=== PATIENT | male | born 1985 | race Hispanic/Latino ===

== ENCOUNTER 2021-01-09 20:47 | Inpatient (IN) | payer SELFPAY ==
[2021-01-09] MEDS ORDERED: Dexamethasone 10 MG/ML VIAL ONE (21:20)
[2021-01-09] MEDS ORDERED: Acetaminophen 500 MG TAB ONE (21:36)
[2021-01-09] MEDS ORDERED: Ketorolac Tromethamine 30 MG/ML VIAL ONE (21:36)
[2021-01-09 21:47] LABS: Hemoglobin 16.5 g/dL (13.5-17.5); Mean Corpuscular HGB CONC 33.7 g/dL (32.0-36.0); Mean Corpuscular Volume 82.9 fl (81.2-95.1); Mean Platelet Volume 10.2 fl (7.4-10.4); Platelet Count 316 10x3/uL (150-450); RBC Distribution Width 13.2 % (11.5-14.5); White Blood Cell (WBC) Count 7.4 10x3/uL (3.5-10.5)
[2021-01-09 22:09] LABS: ALT (SGPT) 114 U/L (8-55); AST (SGOT) 105 U/L (5-34); Albumin 3.6 g/dL (3.5-5.0); Alkaline Phosphatase 95 U/L (40-110); Anion Gap 19 mmol/L (10-20); BUN (Urea Nitrogen) 18 mg/dL (8.9-20.6); Bilirubin, Total 1.2 mg/dL (0.2-1.2); Calc. Creatinine Clearance 0 mL/min (70-130); Calcium 8.6 mg/dL (7.8-10.44); Carbon Dioxide 24 mmol/L (22-29); Chloride 94 mmol/L (98-107); Globulin 3.6 g/dL (2.4-3.5); Glucose 131 mg/dL (70-105); Protein, Total 7.2 g/dL (6.0-8.3); Sodium 133 mmol/L (136-145)
[2021-01-09 22:35] LABS: CKMB 1.9 ng/mL (0-6.6)
[2021-01-09] MEDS ORDERED: Calcium Carbonate 500 MG ChewTAB PO PRN (22:45)
[2021-01-09] MEDS ORDERED: Ondansetron PF 4 MG/2 ML Vial IVP PRN (22:45)
[2021-01-09] MEDS ORDERED: HYDROcodone/Acetaminophen 5/325 mg Tablet PO PRN (22:45)
[2021-01-09] MEDS ORDERED: Enoxaparin Sodium 40 MG/0.4 ML SYRINGE SC SCH (22:45)
[2021-01-09] MEDS ORDERED: Zolpidem Tartrate 5 MG TAB PO PRN (22:45)
[2021-01-09] MEDS ORDERED: Ventolin HFA Inhaler 60 PUFF INHALER INH PRN (22:49)
[2021-01-09] MEDS ORDERED: Sodium Chloride 0.9% 1,000 ML IV SCH (23:00)
[2021-01-09 23:25] LABS: Band 6 % (5-11); Lymphocytes 7 % (21-51); Reactive Lymphocytes 13 % (0-10)
[2021-01-09 23:26] LABS: Monocytes 6 % (0-10)
[2021-01-09 23:27] LABS: Neutrophil 68 % (42-75)
[2021-01-09 23:28] LABS: Large Platelets SLIGHT; Platelet Morphology Comment Appears Adequate
[2021-01-09 23:29] LABS: MDiff Complete? YES; Manual Diff?? YES
[2021-01-09 23:30] LABS: RBC Morphology Normal
[2021-01-10] MEDS ORDERED: guaiFENesin/Codeine Phosphate 100 mg/10 mg 5 ml UD Cup ONE ×3 (01:07→12:49)
[2021-01-10] MEDS ORDERED: Enoxaparin Sodium 40 MG/0.4 ML SYRINGE ONE ×2 (01:08→08:11)
[2021-01-10 03:52] LABS: Hemoglobin 15.8 g/dL (13.5-17.5); Mean Corpuscular HGB CONC 33.3 g/dL (32.0-36.0); Mean Corpuscular Hemoglobin 27.9 pg (27.0-33.0); Mean Corpuscular Volume 83.7 fl (81.2-95.1); Mean Platelet Volume 9.9 fl (7.4-10.4); Platelet Count 295 10x3/uL (150-450); RBC Distribution Width 13.3 % (11.5-14.5); Red Blood Cell (RBC) Count 5.66 10x6/uL (4.32-5.72); White Blood Cell (WBC) Count 5.7 10x3/uL (3.5-10.5)
[2021-01-10 04:24] LABS: ALT (SGPT) 102 U/L (8-55); AST (SGOT) 83 U/L (5-34); Albumin 3.4 g/dL (3.5-5.0); Alkaline Phosphatase 86 U/L (40-110); Anion Gap 16 mmol/L (10-20); BUN (Urea Nitrogen) 19 mg/dL (8.9-20.6); Bilirubin, Total 1.2 mg/dL (0.2-1.2); CRP (Inflammatory) 7.21 mg/dL (= or < 0.5); Calc. Creatinine Clearance 0 mL/min (70-130); Calcium 8.9 mg/dL (7.8-10.44); Carbon Dioxide 26 mmol/L (22-29); Chloride 97 mmol/L (98-107); Globulin 3.7 g/dL (2.4-3.5); Glucose 142 mg/dL (70-105); Potassium 3.6 mmol/L (3.5-5.1); Protein, Total 7.1 g/dL (6.0-8.3); Sodium 135 mmol/L (136-145)
[2021-01-10 04:29] LABS: D-Dimer Test 4.94 mg/L FEU (0.19-0.50); INR-International Normal Ratio 1.1; PTT 26.8 sec (22.0-33.0)
[2021-01-10 04:45] LABS: CKMB 1.4 ng/mL (0-6.6)
[2021-01-10 05:33] LABS: Band 7 % (5-11); Eosinophils 1 % (0-10); Lymphocytes 4 % (21-51); Monocytes 6 % (0-10); Neutrophil 75 % (42-75); Reactive Lymphocytes 7 % (0-10)
[2021-01-10 05:34] LABS: Platelet Clumps SLIGHT; Platelet Morphology Comment Appears Adequate; Platelet Satellitism SLIGHT
[2021-01-10 05:35] LABS: MDiff Complete? YES; Manual Diff?? YES; RBC Morphology Normal
[2021-01-10] MEDS: guaiFENesin/Codeine Phosphate 100 mg/10 mg 5 ml UD Cup PO SCH ×3 (07:26→20:51)
[2021-01-10] MEDS ORDERED: Ascorbic Acid 500 mg Chewable Tablet ONE (08:09)
[2021-01-10] MEDS: Ascorbic Acid 500 mg Chewable Tablet PO SCH (08:11)
[2021-01-10] MEDS ORDERED: Benzonatate 100 MG CAP ONE (08:11)
[2021-01-10] MEDS ORDERED: Aspirin Chewable 81 MG TAB ONE (08:11)
[2021-01-10] MEDS: Aspirin 81 mg Enteric Coated Tablet PO SCH (08:11)
[2021-01-10] MEDS: Benzonatate 100 MG CAP PO SCH ×4 (08:11→23:11)
[2021-01-10] MEDS ORDERED: Dexamethasone 4 mg/ml Vial ONE (08:12)
[2021-01-10] MEDS ORDERED: Dexamethasone 4 mg/ml Vial SLOW IVP SCH (09:00)
[2021-01-10] MEDS: Cholecalciferol 1,000 UNITS (25 MCG) TAB PO SCH (09:32)
[2021-01-10] MEDS: Zinc Gluconate 50 MG TAB PO SCH (09:32)
[2021-01-10] MEDS ORDERED: BARICITINIB 2 MG TAB PO SCH (13:00)
[2021-01-10] MEDS: Dexamethasone 4 mg/ml Vial SLOW IVP SCH (20:51)
[2021-01-10] MEDS: Enoxaparin Sodium 40 MG/0.4 ML SYRINGE SC SCH (20:52)
[2021-01-10 22:46] VITALS: BMI 42.4
[2021-01-11] MEDS: guaiFENesin/Codeine Phosphate 100 mg/10 mg 5 ml UD Cup PO SCH ×4 (00:56→19:20)
[2021-01-11 04:17] LABS: ALT (SGPT) 81 U/L (8-55); AST (SGOT) 46 U/L (5-34); Albumin 3.4 g/dL (3.5-5.0); Alkaline Phosphatase 83 U/L (40-110); Anion Gap 16 mmol/L (10-20); BUN (Urea Nitrogen) 20 mg/dL (8.9-20.6); Bilirubin, Total 0.7 mg/dL (0.2-1.2); CRP (Inflammatory) 4.41 mg/dL (= or < 0.5); Calc. Creatinine Clearance 272 mL/min (70-130); Calcium 9.2 mg/dL (7.8-10.44); Carbon Dioxide 27 mmol/L (22-29); Chloride 100 mmol/L (98-107); Globulin 3.8 g/dL (2.4-3.5); Glucose 151 mg/dL (70-105); Potassium 3.9 mmol/L (3.5-5.1); Protein, Total 7.2 g/dL (6.0-8.3); Sodium 139 mmol/L (136-145)
[2021-01-11 04:20] LABS: Hemoglobin 15.9 g/dL (13.5-17.5); Mean Corpuscular HGB CONC 33.5 g/dL (32.0-36.0); Mean Corpuscular Hemoglobin 28.1 pg (27.0-33.0); Mean Corpuscular Volume 83.9 fl (81.2-95.1); Mean Platelet Volume 9.9 fl (7.4-10.4); Platelet Count 360 10x3/uL (150-450); RBC Distribution Width 13.2 % (11.5-14.5); Red Blood Cell (RBC) Count 5.66 10x6/uL (4.32-5.72); White Blood Cell (WBC) Count 10.4 10x3/uL (3.5-10.5)
[2021-01-11 05:13] LABS: Band 6 % (5-11); Monocytes 10 % (0-10); Reactive Lymphocytes 6 % (0-10)
[2021-01-11 05:14] LABS: Lymphocytes 6 % (21-51)
[2021-01-11 05:15] LABS: Platelet Morphology Comment Appears Adequate; Small Platelets MODERATE
[2021-01-11 05:16] LABS: MDiff Complete? YES; Manual Diff?? YES; RBC Morphology Normal
[2021-01-11 05:17] LABS: Neutrophil 72 % (42-75)
[2021-01-11] MEDS: Cholecalciferol 1,000 UNITS (25 MCG) TAB PO SCH (08:31)
[2021-01-11] MEDS: Aspirin 81 mg Enteric Coated Tablet PO SCH (08:32)
[2021-01-11] MEDS: Ascorbic Acid 500 mg Chewable Tablet PO SCH (08:32)
[2021-01-11] MEDS: Benzonatate 100 MG CAP PO SCH ×3 (08:32→20:53)
[2021-01-11] MEDS: Dexamethasone 4 mg/ml Vial SLOW IVP SCH ×2 (08:32→20:53)
[2021-01-11] MEDS: Enoxaparin Sodium 40 MG/0.4 ML SYRINGE SC SCH ×2 (08:33→20:53)
[2021-01-11] MEDS: Zinc Gluconate 50 MG TAB PO SCH (08:34)
[2021-01-11] MEDS: BARICITINIB 2 MG TAB PO SCH (12:47)
[2021-01-12 03:49] LABS: ALT (SGPT) 78 U/L (8-55); AST (SGOT) 45 U/L (5-34); Albumin 3.3 g/dL (3.5-5.0); Alkaline Phosphatase 74 U/L (40-110); Anion Gap 13 mmol/L (10-20); BUN (Urea Nitrogen) 23 mg/dL (8.9-20.6); Bilirubin, Total 0.6 mg/dL (0.2-1.2); Calc. Creatinine Clearance 265 mL/min (70-130); Calcium 8.9 mg/dL (7.8-10.44); Carbon Dioxide 28 mmol/L (22-29); Chloride 99 mmol/L (98-107); Globulin 3.6 g/dL (2.4-3.5); Glucose 162 mg/dL (70-105); Potassium 3.9 mmol/L (3.5-5.1); Protein, Total 6.9 g/dL (6.0-8.3); Sodium 136 mmol/L (136-145)
[2021-01-12] MEDS: guaiFENesin/Codeine Phosphate 100 mg/10 mg 5 ml UD Cup PO SCH ×4 (05:49→20:31)
[2021-01-12 08:05] LABS: CO2 Tension 44.2 mmHg (35.0-45.0); O2 Tension (PaO2), arterial 81.8 mmHg (80.0-100.0); pH, Arterial 7.48 (7.35-7.45)
[2021-01-12 08:06] LABS: Actual Bicarbonate (HCO3a) 32.2 mEq/L (22-28); Base Excess (BEa) 7.6 mEq/L (-2.0 to +3.0); Calcium, Ionized (arterial) 1.17 mmol/L (1.12-1.30); Carboxyhemoglobin (COHb) 0.3 gm% (0.0-3.0); Hemoglobin (Hb) 16.2 g/dL (14.0-18.0); Potassium - ABG Lab 3.9 mmol/L (3.70-5.30); Puncture Site LRA
[2021-01-12] MEDS ORDERED: Dexamethasone 4 mg/ml Vial ONE (08:32)
[2021-01-12] MEDS: Enoxaparin Sodium 40 MG/0.4 ML SYRINGE SC SCH ×2 (08:36→20:28)
[2021-01-12] MEDS: Acetaminophen 325 MG TAB PO PRN (08:37)
[2021-01-12] MEDS: Cholecalciferol 1,000 UNITS (25 MCG) TAB PO SCH (08:38)
[2021-01-12] MEDS: Ascorbic Acid 500 mg Chewable Tablet PO SCH (08:38)
[2021-01-12] MEDS: Benzonatate 100 MG CAP PO SCH ×3 (08:39→20:31)
[2021-01-12] MEDS: Zinc Gluconate 50 MG TAB PO SCH (08:39)
[2021-01-12] MEDS: Aspirin 81 mg Enteric Coated Tablet PO SCH (08:48)
[2021-01-12] MEDS: BARICITINIB 2 MG TAB PO SCH (12:34)
[2021-01-12] MEDS: Dexamethasone 4 mg/ml Vial SLOW IVP SCH ×2 (12:34→20:31)
[2021-01-13 04:06] LABS: #Monocytes 1.6 10x3/uL (0.0-1.1); #Neutrophils 9.9 10x3/uL (1.5-8.4); %Basophils 0.3 % (0.0-2.0); %Lymphocytes 9.7 % (18.0-47.0); %Monocytes 12.5 % (0.0-10.0); %Neutrophils 76.3 % (40.0-75.0); Hemoglobin 15.8 g/dL (13.5-17.5); Mean Corpuscular HGB CONC 32.8 g/dL (32.0-36.0); Mean Corpuscular Volume 85.5 fl (81.2-95.1); Mean Platelet Volume 9.9 fl (7.4-10.4); Platelet Count 465 10x3/uL (150-450); RBC Distribution Width 13.2 % (11.5-14.5); Red Blood Cell (RBC) Count 5.64 10x6/uL (4.32-5.72)
[2021-01-13 04:07] LABS: Anion Gap 14 mmol/L (10-20); BUN (Urea Nitrogen) 21 mg/dL (8.9-20.6); Calc. Creatinine Clearance 268 mL/min (70-130); Calcium 8.9 mg/dL (7.8-10.44); Carbon Dioxide 26 mmol/L (22-29); Chloride 99 mmol/L (98-107); Glucose 138 mg/dL (70-105); Potassium 4.1 mmol/L (3.5-5.1); Sodium 135 mmol/L (136-145)
[2021-01-13] MEDS: guaiFENesin/Codeine Phosphate 100 mg/10 mg 5 ml UD Cup PO SCH ×4 (05:36→19:47)
[2021-01-13 07:29] LABS: Actual Bicarbonate (HCO3a) 31.1 mEq/L (22-28); Base Excess (BEa) 6.7 mEq/L (-2.0 to +3.0); CO2 Tension 43.1 mmHg (35.0-45.0); Calcium, Ionized (arterial) 1.17 mmol/L (1.12-1.30); Carboxyhemoglobin (COHb) 0.3 gm% (0.0-3.0); Hemoglobin (Hb) 16.4 g/dL (14.0-18.0); Puncture Site RRA; pH, Arterial 7.48 (7.35-7.45)
[2021-01-13 07:34] LABS: ALV-art Gradient 454.525 mmHg (0-20)
[2021-01-13] MEDS: Acetaminophen 325 MG TAB PO PRN (08:58)
[2021-01-13] MEDS: Zinc Gluconate 50 MG TAB PO SCH (08:59)
[2021-01-13] MEDS: Aspirin 81 mg Enteric Coated Tablet PO SCH (08:59)
[2021-01-13] MEDS: Ascorbic Acid 500 mg Chewable Tablet PO SCH (08:59)
[2021-01-13] MEDS: Cholecalciferol 1,000 UNITS (25 MCG) TAB PO SCH (08:59)
[2021-01-13] MEDS: Enoxaparin Sodium 40 MG/0.4 ML SYRINGE SC SCH ×2 (09:00→19:49)
[2021-01-13] MEDS: Dexamethasone 4 mg/ml Vial SLOW IVP SCH ×2 (09:00→19:49)
[2021-01-13] MEDS: Benzonatate 100 MG CAP PO SCH ×3 (09:00→19:48)
[2021-01-13] MEDS: BARICITINIB 2 MG TAB PO SCH (12:42)
[2021-01-14] MEDS: guaiFENesin/Codeine Phosphate 100 mg/10 mg 5 ml UD Cup PO SCH ×4 (03:13→20:50)
[2021-01-14 06:31] LABS: #Basophils 0.1 10x3/uL (0.0-0.2); #Monocytes 1.5 10x3/uL (0.0-1.1); #Neutrophils 10.9 10x3/uL (1.5-8.4); %Basophils 0.4 % (0.0-2.0); %Eosinophils 0.1 % (0.0-6.0); %Lymphocytes 9.8 % (18.0-47.0); %Monocytes 10.5 % (0.0-10.0); %Neutrophils 77.3 % (40.0-75.0); Hemoglobin 15.9 g/dL (13.5-17.5); Mean Corpuscular HGB CONC 32.6 g/dL (32.0-36.0); Mean Corpuscular Hemoglobin 28.1 pg (27.0-33.0); Mean Corpuscular Volume 86.4 fl (81.2-95.1); Mean Platelet Volume 9.8 fl (7.4-10.4); Platelet Count 539 10x3/uL (150-450); RBC Distribution Width 13.2 % (11.5-14.5); Red Blood Cell (RBC) Count 5.65 10x6/uL (4.32-5.72); White Blood Cell (WBC) Count 14.2 10x3/uL (3.5-10.5)
[2021-01-14 06:32] LABS: Anion Gap 14 mmol/L (10-20); BUN (Urea Nitrogen) 22 mg/dL (8.9-20.6); Calc. Creatinine Clearance 275 mL/min (70-130); Carbon Dioxide 28 mmol/L (22-29); Chloride 101 mmol/L (98-107); Potassium 4.2 mmol/L (3.5-5.1); Sodium 139 mmol/L (136-145)
[2021-01-14] MEDS: Enoxaparin Sodium 40 MG/0.4 ML SYRINGE SC SCH ×2 (08:41→20:51)
[2021-01-14] MEDS: Zinc Gluconate 50 MG TAB PO SCH (08:42)
[2021-01-14] MEDS: Acetaminophen 325 MG TAB PO PRN (08:42)
[2021-01-14] MEDS: Benzonatate 100 MG CAP PO SCH ×3 (08:42→20:51)
[2021-01-14] MEDS: Ascorbic Acid 500 mg Chewable Tablet PO SCH (08:42)
[2021-01-14] MEDS: Cholecalciferol 1,000 UNITS (25 MCG) TAB PO SCH (08:42)
[2021-01-14] MEDS: Aspirin 81 mg Enteric Coated Tablet PO SCH (08:42)
[2021-01-14] MEDS: Dexamethasone 4 mg/ml Vial SLOW IVP SCH ×2 (08:43→20:51)
[2021-01-14 09:04] LABS: Calcium 9.3 mg/dL (7.8-10.44); Glucose 108 mg/dL (70-105)
[2021-01-14] MEDS: BARICITINIB 2 MG TAB PO SCH (11:55)
[2021-01-15] MEDS: guaiFENesin/Codeine Phosphate 100 mg/10 mg 5 ml UD Cup PO SCH ×4 (03:53→20:09)
[2021-01-15 04:39] LABS: #Basophils 0.1 10x3/uL (0.0-0.2); #Monocytes 1.5 10x3/uL (0.0-1.1); #Neutrophils 11.7 10x3/uL (1.5-8.4); %Basophils 0.4 % (0.0-2.0); %Lymphocytes 8.1 % (18.0-47.0); %Monocytes 10.1 % (0.0-10.0); %Neutrophils 78.8 % (40.0-75.0); Hemoglobin 15.8 g/dL (13.5-17.5); Mean Corpuscular Hemoglobin 27.8 pg (27.0-33.0); Mean Platelet Volume 9.9 fl (7.4-10.4); Platelet Count 588 10x3/uL (150-450); RBC Distribution Width 13.2 % (11.5-14.5); Red Blood Cell (RBC) Count 5.68 10x6/uL (4.32-5.72); White Blood Cell (WBC) Count 14.9 10x3/uL (3.5-10.5)
[2021-01-15 04:56] LABS: Anion Gap 14 mmol/L (10-20); BUN (Urea Nitrogen) 23 mg/dL (8.9-20.6); CRP (Inflammatory) Less than 0.50 mg/dL (= or < 0.5); Calc. Creatinine Clearance 265 mL/min (70-130); Calcium 9.1 mg/dL (7.8-10.44); Carbon Dioxide 26 mmol/L (22-29); Chloride 102 mmol/L (98-107); Glucose 116 mg/dL (70-105); Potassium 4.4 mmol/L (3.5-5.1); Sodium 138 mmol/L (136-145)
[2021-01-15] MEDS: Enoxaparin Sodium 40 MG/0.4 ML SYRINGE SC SCH ×2 (08:21→20:10)
[2021-01-15] MEDS: Benzonatate 100 MG CAP PO SCH ×3 (08:24→20:10)
[2021-01-15] MEDS: Aspirin 81 mg Enteric Coated Tablet PO SCH (08:24)
[2021-01-15] MEDS: Dexamethasone 4 mg/ml Vial SLOW IVP SCH ×2 (08:24→21:19)
[2021-01-15] MEDS: Ascorbic Acid 500 mg Chewable Tablet PO SCH (08:25)
[2021-01-15] MEDS: Cholecalciferol 1,000 UNITS (25 MCG) TAB PO SCH (08:25)
[2021-01-15] MEDS: Zinc Gluconate 50 MG TAB PO SCH (08:25)
[2021-01-15] MEDS: BARICITINIB 2 MG TAB PO SCH (11:22)
[2021-01-15] MEDS: Acetaminophen 325 MG TAB PO PRN (20:10)
[2021-01-16] MEDS: guaiFENesin/Codeine Phosphate 100 mg/10 mg 5 ml UD Cup PO SCH ×4 (02:51→21:01)
[2021-01-16 05:27] LABS: #Basophils 0.1 10x3/uL (0.0-0.2); #Eosinphils 0.1 10x3/uL (0.0-0.5); #Monocytes 1.7 10x3/uL (0.0-1.1); #Neutrophils 11.4 10x3/uL (1.5-8.4); %Basophils 0.6 % (0.0-2.0); %Eosinophils 0.3 % (0.0-6.0); %Lymphocytes 13.9 % (18.0-47.0); %Monocytes 10.7 % (0.0-10.0); %Neutrophils 70.5 % (40.0-75.0); Hemoglobin 15.7 g/dL (13.5-17.5); Mean Corpuscular Hemoglobin 28.1 pg (27.0-33.0); Mean Corpuscular Volume 87.8 fl (81.2-95.1); Mean Platelet Volume 9.8 fl (7.4-10.4); Platelet Count 620 10x3/uL (150-450); RBC Distribution Width 13.3 % (11.5-14.5); Red Blood Cell (RBC) Count 5.59 10x6/uL (4.32-5.72); White Blood Cell (WBC) Count 16.2 10x3/uL (3.5-10.5)
[2021-01-16 05:34] LABS: Anion Gap 11 mmol/L (10-20); BUN (Urea Nitrogen) 27 mg/dL (8.9-20.6); Calc. Creatinine Clearance 261 mL/min (70-130); Carbon Dioxide 28 mmol/L (22-29); Chloride 102 mmol/L (98-107); Glucose 82 mg/dL (70-105); Potassium 3.8 mmol/L (3.5-5.1); Sodium 137 mmol/L (136-145)
[2021-01-16] MEDS ORDERED: Dexamethasone 4 mg/ml Vial SLOW IVP SCH (09:00)
[2021-01-16] MEDS ORDERED: Dexamethasone 20 MG/5 ML VIAL SLOW IVP SCH (09:00)
[2021-01-16] MEDS: Benzonatate 100 MG CAP PO SCH ×3 (09:52→21:01)
[2021-01-16] MEDS: Aspirin 81 mg Enteric Coated Tablet PO SCH (09:52)
[2021-01-16] MEDS: Zinc Gluconate 50 MG TAB PO SCH (09:53)
[2021-01-16] MEDS: Ascorbic Acid 500 mg Chewable Tablet PO SCH (09:53)
[2021-01-16] MEDS: Acetaminophen 325 MG TAB PO PRN ×2 (09:53→21:01)
[2021-01-16] MEDS: Enoxaparin Sodium 40 MG/0.4 ML SYRINGE SC SCH ×2 (09:56→21:01)
[2021-01-16 10:03] LABS: ALT (SGPT) 142 U/L (8-55); AST (SGOT) 38 U/L (5-34); Albumin 3.2 g/dL (3.5-5.0); Alkaline Phosphatase 66 U/L (40-110); Bilirubin, Direct 0.2 mg/dL (0.1-0.3); Bilirubin, Total 0.6 mg/dL (0.2-1.2); Protein, Total 6.5 g/dL (6.0-8.3)
[2021-01-16] MEDS: BARICITINIB 2 MG TAB PO SCH (12:48)
[2021-01-17] MEDS: guaiFENesin/Codeine Phosphate 100 mg/10 mg 5 ml UD Cup PO SCH ×4 (02:04→20:22)
[2021-01-17 05:11] LABS: #Basophils 0.1 10x3/uL (0.0-0.2); #Eosinphils 0.1 10x3/uL (0.0-0.5); #Monocytes 1.5 10x3/uL (0.0-1.1); #Neutrophils 9.6 10x3/uL (1.5-8.4); %Basophils 0.6 % (0.0-2.0); %Eosinophils 0.5 % (0.0-6.0); %Lymphocytes 13.2 % (18.0-47.0); %Neutrophils 69.7 % (40.0-75.0); Hemoglobin 15.7 g/dL (13.5-17.5); Mean Corpuscular HGB CONC 32.6 g/dL (32.0-36.0); Mean Corpuscular Hemoglobin 28.4 pg (27.0-33.0); Mean Platelet Volume 9.7 fl (7.4-10.4); Platelet Count 645 10x3/uL (150-450); RBC Distribution Width 13.4 % (11.5-14.5); Red Blood Cell (RBC) Count 5.53 10x6/uL (4.32-5.72); White Blood Cell (WBC) Count 13.7 10x3/uL (3.5-10.5)
[2021-01-17 06:18] LABS: Anion Gap 14 mmol/L (10-20); BUN (Urea Nitrogen) 26 mg/dL (8.9-20.6); CRP (Inflammatory) 2.52 mg/dL (= or < 0.5); Calc. Creatinine Clearance 246 mL/min (70-130); Calcium 9.4 mg/dL (7.8-10.44); Carbon Dioxide 26 mmol/L (22-29); Chloride 102 mmol/L (98-107); Glucose 77 mg/dL (70-105); Sodium 138 mmol/L (136-145)
[2021-01-17] MEDS: Enoxaparin Sodium 40 MG/0.4 ML SYRINGE SC SCH ×2 (08:09→20:22)
[2021-01-17] MEDS: Zinc Gluconate 50 MG TAB PO SCH (08:09)
[2021-01-17] MEDS: Aspirin 81 mg Enteric Coated Tablet PO SCH (08:09)
[2021-01-17] MEDS: Benzonatate 100 MG CAP PO SCH ×3 (08:09→20:22)
[2021-01-17] MEDS: Ascorbic Acid 500 mg Chewable Tablet PO SCH (08:09)
[2021-01-17] MEDS: Cholecalciferol 1,000 UNITS (25 MCG) TAB PO SCH (08:09)
[2021-01-17] MEDS: Dexamethasone 20 MG/5 ML VIAL SLOW IVP SCH (08:10)
[2021-01-17] MEDS: Acetaminophen 325 MG TAB PO PRN ×2 (08:37→20:23)
[2021-01-17] MEDS: BARICITINIB 2 MG TAB PO SCH (12:58)
[2021-01-17] MEDS ORDERED: Lorazepam 2 MG/ML VIAL SLOW IVP PRN (15:17)
[2021-01-18] MEDS: guaiFENesin/Codeine Phosphate 100 mg/10 mg 5 ml UD Cup PO SCH ×4 (01:22→20:01)
[2021-01-18 05:23] LABS: Hemoglobin 15.5 g/dL (13.5-17.5); Mean Corpuscular HGB CONC 32.8 g/dL (32.0-36.0); Mean Corpuscular Hemoglobin 28.4 pg (27.0-33.0); Mean Corpuscular Volume 86.6 fl (81.2-95.1); RBC Distribution Width 13.3 % (11.5-14.5); Red Blood Cell (RBC) Count 5.46 10x6/uL (4.32-5.72); White Blood Cell (WBC) Count 13.7 10x3/uL (3.5-10.5)
[2021-01-18 05:24] LABS: #Basophils 0.1 10x3/uL (0.0-0.2); #Eosinphils 0.1 10x3/uL (0.0-0.5); #Monocytes 1.8 10x3/uL (0.0-1.1); #Neutrophils 8.4 10x3/uL (1.5-8.4); %Basophils 0.4 % (0.0-2.0); %Lymphocytes 19.1 % (18.0-47.0); %Neutrophils 61.7 % (40.0-75.0); Mean Platelet Volume 9.5 fl (7.4-10.4); Platelet Count 641 10x3/uL (150-450)
[2021-01-18 05:37] LABS: Anion Gap 13 mmol/L (10-20); BUN (Urea Nitrogen) 24 mg/dL (8.9-20.6); Calc. Creatinine Clearance 258 mL/min (70-130); Calcium 9.4 mg/dL (7.8-10.44); Carbon Dioxide 27 mmol/L (22-29); Chloride 103 mmol/L (98-107); Glucose 83 mg/dL (70-105); Potassium 3.9 mmol/L (3.5-5.1); Sodium 139 mmol/L (136-145)
[2021-01-18] MEDS: Dexamethasone 20 MG/5 ML VIAL SLOW IVP SCH (08:39)
[2021-01-18] MEDS: Benzonatate 100 MG CAP PO SCH ×3 (08:39→20:01)
[2021-01-18] MEDS: Enoxaparin Sodium 40 MG/0.4 ML SYRINGE SC SCH ×2 (08:39→20:02)
[2021-01-18] MEDS: Ascorbic Acid 500 mg Chewable Tablet PO SCH (08:39)
[2021-01-18] MEDS: Cholecalciferol 1,000 UNITS (25 MCG) TAB PO SCH (08:39)
[2021-01-18] MEDS: Zinc Gluconate 50 MG TAB PO SCH (08:40)
[2021-01-18] MEDS: Aspirin 81 mg Enteric Coated Tablet PO SCH (08:40)
[2021-01-18] MEDS: BARICITINIB 2 MG TAB PO SCH (12:39)
[2021-01-18] MEDS ORDERED: Polyethylene Glycol 3350 17 GM Packet PO SCH (20:00)
[2021-01-18] MEDS: Acetaminophen 325 MG TAB PO PRN (20:02)
[2021-01-19] MEDS: guaiFENesin/Codeine Phosphate 100 mg/10 mg 5 ml UD Cup PO SCH ×4 (03:00→20:01)
[2021-01-19 05:57] LABS: ALT (SGPT) 122 U/L (8-55); AST (SGOT) 39 U/L (5-34); Albumin 3.5 g/dL (3.5-5.0); Alkaline Phosphatase 74 U/L (40-110); Bilirubin, Direct 0.2 mg/dL (0.1-0.3); Bilirubin, Total 0.6 mg/dL (0.2-1.2); Protein, Total 7.1 g/dL (6.0-8.3)
[2021-01-19 06:48] LABS: Anion Gap 16 mmol/L (10-20); BUN (Urea Nitrogen) 21 mg/dL (8.9-20.6); CRP (Inflammatory) 0.66 mg/dL (= or < 0.5); Calc. Creatinine Clearance 265 mL/min (70-130); Calcium 9.6 mg/dL (7.8-10.44); Carbon Dioxide 24 mmol/L (22-29); Chloride 102 mmol/L (98-107); Glucose 82 mg/dL (70-105); Potassium 3.9 mmol/L (3.5-5.1); Sodium 138 mmol/L (136-145)
[2021-01-19 08:53] LABS: #Basophils 0.1 10x3/uL (0.0-0.2); #Eosinphils 0.1 10x3/uL (0.0-0.5); #Monocytes 1.5 10x3/uL (0.0-1.1); #Neutrophils 7.8 10x3/uL (1.5-8.4); %Basophils 0.4 % (0.0-2.0); %Eosinophils 0.9 % (0.0-6.0); %Lymphocytes 18.4 % (18.0-47.0); %Monocytes 12.4 % (0.0-10.0); %Neutrophils 65.8 % (40.0-75.0); Hemoglobin 15.3 g/dL (13.5-17.5); Mean Corpuscular HGB CONC 32.2 g/dL (32.0-36.0); Mean Corpuscular Hemoglobin 27.9 pg (27.0-33.0); Mean Corpuscular Volume 86.5 fl (81.2-95.1); Mean Platelet Volume 9.7 fl (7.4-10.4); Platelet Count 641 10x3/uL (150-450); RBC Distribution Width 13.4 % (11.5-14.5); Red Blood Cell (RBC) Count 5.49 10x6/uL (4.32-5.72); White Blood Cell (WBC) Count 11.8 10x3/uL (3.5-10.5)
[2021-01-19] MEDS: Dexamethasone 20 MG/5 ML VIAL SLOW IVP SCH (09:19)
[2021-01-19] MEDS: Benzonatate 100 MG CAP PO SCH ×3 (09:19→20:01)
[2021-01-19] MEDS: Ascorbic Acid 500 mg Chewable Tablet PO SCH (09:19)
[2021-01-19] MEDS: Aspirin 81 mg Enteric Coated Tablet PO SCH (09:19)
[2021-01-19] MEDS: Cholecalciferol 1,000 UNITS (25 MCG) TAB PO SCH (09:19)
[2021-01-19] MEDS: Enoxaparin Sodium 40 MG/0.4 ML SYRINGE SC SCH ×2 (09:20→20:00)
[2021-01-19] MEDS: Zinc Gluconate 50 MG TAB PO SCH (09:20)
[2021-01-19] MEDS: BARICITINIB 2 MG TAB PO SCH (11:15)
[2021-01-19] MEDS: Polyethylene Glycol 3350 17 GM Packet PO SCH ×2 (20:01→21:37)
[2021-01-19] MEDS: Acetaminophen 325 MG TAB PO PRN (20:06)
[2021-01-20] MEDS: guaiFENesin/Codeine Phosphate 100 mg/10 mg 5 ml UD Cup PO SCH ×3 (03:49→14:49)
[2021-01-20] MEDS: Benzonatate 100 MG CAP PO SCH ×2 (08:41→14:49)
[2021-01-20] MEDS: Ascorbic Acid 500 mg Chewable Tablet PO SCH (08:41)
[2021-01-20] MEDS: Cholecalciferol 1,000 UNITS (25 MCG) TAB PO SCH (08:41)
[2021-01-20] MEDS: Zinc Gluconate 50 MG TAB PO SCH (08:41)
[2021-01-20] MEDS: Enoxaparin Sodium 40 MG/0.4 ML SYRINGE SC SCH (08:42)
[2021-01-20] MEDS: Aspirin 81 mg Enteric Coated Tablet PO SCH (08:42)
[2021-01-20] MEDS: Polyethylene Glycol 3350 17 GM Packet PO SCH (08:42)
[2021-01-20] MEDS: Dexamethasone 20 MG/5 ML VIAL SLOW IVP SCH (08:42)
[2021-01-20] MEDS: BARICITINIB 2 MG TAB PO SCH (14:49)
[2021-01-20 17:47] VITALS: BP 158/84; TEMP 97.9
== END 2021-01-20 21:10 | disposition home or self-care (01) | DRG 871 ==
LOC: CSHERS 20:47 → CSHERHOLD 23:01 → CSHICU 01-10 17:25 → CSHTELE 01-13 14:24
PROVIDERS: ADMIT Student in an Organized Health Care Education/Training Program; ATTEND Family Medicine
DX: A41.89 Other specified sepsis (principal); U07.1 COVID-19; J12.82 Pneumonia due to coronavirus disease 2019; J96.01 Acute respiratory failure with hypoxia; Z68.41 Body mass index [BMI] 40.0-44.9, adult; R74.01 Elevation of levels of liver transaminase levels; F17.210 Nicotine dependence, cigarettes, uncomplicated; E66.9 Obesity, unspecified
CPT/HCPCS: 36415; 36600; 71045; 71275; 80048; 80053; 80076; 82553; 82805; 84484; 85025; 85379; 85610; 85730; 86140; 93005; 94640; 94760; 96374; 96375; J1100; J1650; J1885; J2060; J7050

== ENCOUNTER 2021-08-24 14:54 | Emergency (ER) | payer OTHER, SELFPAY ==
[2021-08-24] MEDS ORDERED: Ketorolac Tromethamine 30 MG/ML VIAL ONE (15:37)
== END 2021-08-24 15:40 | disposition home or self-care (01) ==
LOC: CSHERS 14:54
DX: M62.830 Muscle spasm of back (principal); X50.9XXA Other and unspecified overexertion or strenuous movements or postures, initial encounter; Y92.89 Other specified places as the place of occurrence of the external cause; Y99.0 Civilian activity done for income or pay; F17.210 Nicotine dependence, cigarettes, uncomplicated
CPT/HCPCS: 96372; 99283; J1885

== ENCOUNTER 2023-10-23 18:27 | Emergency (ER) | payer OTHER, SELFPAY ==
[2023-10-23] MEDS ORDERED: Ketorolac Tromethamine 30 MG (1 mL) VIAL ONE (19:05)
== END 2023-10-23 20:00 | disposition home or self-care (01) ==
LOC: CSHERS 18:27
DX: M54.2 Cervicalgia (principal); V43.52XA Car driver injured in collision with other type car in traffic accident, initial encounter
CPT/HCPCS: 72125; 96372; J1885